=== PATIENT | male | born 2000 | race Caucasian/White ===

== ENCOUNTER 2023-04-11 17:51 | Emergency (ER) | payer BC, SELFPAY ==
[2023-04-11 17:52] VITALS: BP 113/72; PULSE 72; RESP 16; TEMP 36.5; O2SAT 100; BMI 21.1
--- NOTE | 2023-04-11 18:37 | ED.VIS.DENTA ---
HPI History of Present Illness Chief Complaint: Dental Informant: patient Narrative Narrative: Patient presents with dental pain. Patient states 1 or 2 weeks ago he had a part of a tooth broke off in the front. But he has had bad teeth there for a long time. He saw dentist a while ago. He was referred to an ethylene compressor operator to pull his teeth and it was going to be over $4000 and he just did not have the money. Patient has not had fevers or chills. This note was generated with [employer] dictation software. It may contain incorrect words, spelling, and punctuation that were not noted in review of the chart prior to signing. Also, today, our computer system has more errors in dictation problems than a normal day. PFSH PFSH Home Medications naproxen 500 mg tablet 500 mg PO BID PRN #20 tabs 04/11/23 [Rx Last Taken Unknown] penicillin V potassium 500 mg tablet 500 mg PO 4X/DAY #40 tabs 04/11/23 [Rx Last Taken Unknown] Allergy/AdvReac Type Severity Reaction Status Date / Time No Known Allergies Allergy Verified 04/11/23 17:55 Social History Smoking Status: Never smoker ROS ROS ED Constitutional Constitutional ED: Denies chills, fever(s), subjective or sweats Eyes Eyes: Denies blurry vision or change in vision ENT ENT ED: Reports other Details: See history of present illness. Cardiovascular Cardiovascular: Denies chest pain Respiratory/Chest Respiratory/Chest: Denies cough or dyspnea Gastrointestinal Gastrointestinal: Denies nausea or vomiting Musculoskeletal Musculoskeletal: Denies neck pain Integumentary Denies rash Neurologic Neurologic: Denies paresthesias or weakness Hematologic/Lymphatic Hematologic/Lymphatic: Denies lymphadenopathy EXAM Physical Exam Narrative Exam Narrative: General: Patient sitting comfortably in the bed no acute distress. HEENT: No external erythema or swelling. He has multiple eroded teeth and inflamed gums across the entire front right of his jaw. More consistent with ANUG. Normal voice. No swelling consistent with Merary's. Neck is supple no lymphadenopathy. Heart is regular. No murmur. Not tachycardic. Normal distal pulses. Lungs are clear saturations normal 100% on room air showing no hypoxia. Const Vital Signs: 10/20/23 17:52 Temperature 97.7 F L Temperature Source Temporal Pulse Rate 72 Respiratory Rate 16 Blood Pressure 113/72 Blood Pressure Mean 85 Pulse Ox 100 Oxygen Delivery Method Room Air MDM MDM MDM Narrative Medical decision making narrative: We will give the patient a dental resource sheet to give him some options. We will initiate him on antibiotics also. We discussed reasons to return. Discharge Plan Triage Chief Complaint: Dental ED Provider: Dash Quinones Dx/Rx/DC Orders Clinical Impression: ANUG (acute necrotizing ulcerative gingivitis) Instructions: Dental Abscess Prescriptions: New penicillin V potassium 500 mg tablet 500 mg PO 4X/DAY Qty: 40 0RF naproxen 500 mg tablet 500 mg PO BID PRN Qty: 20 0RF Primary Care Provider: Mavis Benz Referrals: Mavis Benz MD [Primary Care Provider] - Activity Restrictions/Additional Instructions: Follow-up with dentist as soon as able. Disposition Disposition: Home, Self Care
[2023-04-11] MEDS: Penicillin Vk 250 MG Tablet 500 MG PO (18:58)
== END 2023-04-11 19:01 | disposition home or self-care (01) ==
LOC: ED 18:55
PROVIDERS: Emergency Provider Emergency Medicine; PCP Pediatrics; Visit Provider Emergency Medicine
DX: A69.1 Other Vincent's infections (principal)
CPT/HCPCS: 99282

== ENCOUNTER 2023-05-01 14:31 | Emergency (ER) | payer BC, SELFPAY ==
[2023-05-01 14:33] VITALS: BP 115/77; PULSE 70; RESP 14; TEMP 36.2; O2SAT 100; BMI 21.4
== END 2023-05-01 15:29 | disposition left against medical advice (07) ==
LOC: ED 15:43
PROVIDERS: Emergency Provider Emergency Medicine; PCP Pediatrics; Visit Provider Emergency Medicine
DX: Z53.21 Procedure and treatment not carried out due to patient leaving prior to being seen by health care provider (principal)

== ENCOUNTER 2023-08-11 15:59 | Emergency (ER) | payer BC, SELFPAY ==
[2023-08-11 16:00] VITALS: BP 140/91; PULSE 81; RESP 14; TEMP 36.6; O2SAT 100; BMI 21.7
--- NOTE | 2023-08-11 17:36 | ED.VIS.DENTA ---
HPI History of Present Illness Chief Complaint: Ear Problem Narrative Narrative: 22-year-old male presenting with right sided ear pain and dental pain. Patient has multiple dental caries. He states he was referred to an marketing and outreach coordinator to have all of his teeth in his mouth removed. Patient states when he arrived at the marketing and outreach coordinator they did not do that. Patient states he was referred by his regular dentist. He States His Regular Dentist Stated to Him That He Only Does, cleaning, removal of teeth. Patient states that he was initially his ear to hurt for the last couple of days and then after he chipped a piece of his tooth on the right mandible he noted that the pain increased and he had some pain radiating to his neck. No trouble swallowing or breathing. No fevers or chills. PFSH PFS Medical History ADHD Asthma Home Medications penicillin V potassium 500 mg tablet 500 mg PO 4X/DAY #40 tabs 08/11/23 [Rx Last Taken Unknown] Allergy/AdvReac Type Severity Reaction Status Date / Time No Known Allergies Allergy Verified 08/11/23 16:00 Social History household members: significant other and children Smoking Status: Current every day smoker tobacco type: cigarettes ROS ROS ED Constitutional Constitutional ED: Denies chills, fever(s) or sweats Eyes Eyes: Denies blurry vision or change in vision ENT ENT ED: Reports ear pain right and other Details: Dental pain and dental caries Cardiovascular Cardiovascular: Denies chest pain, palpitations or racing heartbeat Respiratory/Chest Respiratory/Chest: Denies cough, dyspnea or sputum Gastrointestinal Gastrointestinal: Denies abdominal pain, constipation, diarrhea, nausea or vomiting Genitourinary Genitourinary ED: Denies dysuria, hematuria or urinary frequency Musculoskeletal Musculoskeletal: Denies arthralgias, myalgias or neck pain Integumentary Denies abscess, Abrasions or rash Neurologic Neurologic: Denies headache(s), paresthesias or weakness Psychiatric Psychiatric: Denies anxiety, depression, suicidal ideation or suicidal thoughts Endocrine Endocrinology: Denies polydipsia or polyuria EXAM Physical Exam Const Vital Signs: 08/11/23 16:00 Temperature 97.9 F Temperature Source Temporal Pulse Rate 81 Respiratory Rate 14 Blood Pressure 140/91 H Blood Pressure Mean 107 Pulse Ox 100 Oxygen Delivery Method Room Air Positive well nourished General Appearance ED: NAD HEENT HEENT Narrative: Widespread dental caries. Most predominant on the right mandibular teeth posteriorly. Various forms of dental decay. No sublingual edema. Tongue is normal. No submandibular edema. Right TM normal without erythema. Throat: posterior oropharynx normal Eyes PERRL Neck no lymphadenopathy and supple Resp normal respiratory effort and no retractions Cardio regular rate and regular rhythm GI normal to inspection, nondistended, normoactive bowel sounds Neuro oriented x3 and CN's II-XII intact bilaterally Sensorium / Orientation: alert Psych mental status grossly normal MDM MDM MDM Narrative Medical decision making narrative: Patient presenting with dental caries and right mandibular pain. He states he thought it was his ear but his TM looks normal. He does have various forms of dental decay throughout his mouth with predominance on the right side especially posteriorly. I recommended a dentist for him. He was given a referral sheet. I will start him on penicillin VK. No evidence of Nathanael's angina. Return precautions are discussed. Impression: 1. Dental caries 2. Dental infection Lab Data Attestation: I reviewed the patient's lab results. Discharge Plan Triage Chief Complaint: Ear Problem Other Complaint: Dental ED Provider: Nikhil Alva Dx/Rx/DC Orders Instructions: ED Dental Cavity Prescriptions: New penicillin V potassium 500 mg tablet 500 mg PO 4X/DAY Qty: 40 0RF Primary Care Provider: Mavis Benz Referrals: Mavis Benz MD [Primary Care Provider] - Disposition Disposition: Home, Self Care
[2023-08-11] MEDS: Penicillin Vk 250 MG Tablet 500 MG PO (17:37)
== END 2023-08-11 17:40 | disposition home or self-care (01) ==
PROVIDERS: Emergency Provider Student in an Organized Health Care Education/Training Program; PCP Pediatrics; Visit Provider Student in an Organized Health Care Education/Training Program
DX: K02.9 Dental caries, unspecified (principal); R68.84 Jaw pain; K04.7 Periapical abscess without sinus; F17.210 Nicotine dependence, cigarettes, uncomplicated; J45.909 Unspecified asthma, uncomplicated; H92.01 Otalgia, right ear
CPT/HCPCS: 99283

== ENCOUNTER 2024-05-07 22:20 | Emergency (ER) | payer BC, SELFPAY ==
[2024-05-07 22:21] VITALS: BP 128/85; PULSE 65; RESP 16; TEMP 36.7; O2SAT 98; BMI 22.6
--- NOTE | 2024-05-07 22:38 | EDS_ITS ---
HPI History of Present Illness Chief Complaint: Headache Informant: patient Narrative Narrative: 23-year-old male states he started having what feels like a migraine this morning and has been persistent. Retro-orbital bilateral headache, throbbing, some photophobia and nausea. No vomiting. Started having some chills tonight which is what brought him to the ER, thinking maybe he had a fever and an illness but when he got here although he was having chills his temperature is normal. He denies any other symptoms such as cough, congestion, earache, sore throat. No recent head injury. [facility] Medical History Asthma ADHD Home Medications ?Medication ?Instructions ?Recorded ?Last Taken ?Type penicillin V potassium 500 mg 500 mg PO 4X/DAY #40 tabs 08/11/23 Unknown Rx tablet Allergy/AdvReac Type Severity Reaction Status Date / Time No Known Allergies Allergy Verified 05/07/24 22:21 Social History household members: significant other and children Smoking Status: Current every day smoker tobacco type: cigarettes ROS ROS ED Constitutional Constitutional ED: Reports chills and sweats; Denies fever(s) Eyes Eyes: Denies blurry vision, change in vision or diplopia ENT ENT ED: Denies ear pain or sore throat Cardiovascular Cardiovascular: Denies chest pain or palpitations Respiratory/Chest Respiratory/Chest: Denies cough or dyspnea Gastrointestinal Gastrointestinal: Reports nausea; Denies abdominal pain, diarrhea or vomiting Genitourinary Genitourinary ED: Denies dysuria or urinary frequency Musculoskeletal Musculoskeletal: Denies back pain or myalgias Integumentary Denies abscess or rash Neurologic Neurologic: Reports headache(s); Denies paresthesias or weakness EXAM Physical Exam Const Vital Signs: 05/07/24 22:21 Temperature 98.1 F Temperature Source Oral Pulse Rate 65 Respiratory Rate 16 Blood Pressure 128/85 H Blood Pressure Mean 99 Pulse Ox 98 Oxygen Delivery Method Room Air Positive well nourished and well developed General Appearance ED: well developed and NAD HEENT Reports normocephalic, TM's clear and moist mucous membranes atraumatic Tympanic Membrane ED: Yes TM's clear Eyes PERRL, EOMs intact bilaterally and conjunctivae normal Neck no lymphadenopathy, supple and no meningeal signs Resp normal respiratory effort GI non-tender and non-distended Palpation: soft Extremity normal to inspection and full ROM Neuro oriented x3 and CN's II-XII intact bilaterally Sensorium / Orientation: awake and alert Speech: speech normal Gait (Neuro): normal gait Motor Exam: strength 5/5 throughout Psych mental status grossly normal Skin Lesions: no lesions Rashes: no rashes MDM MDM MDM Narrative Medical decision making narrative: Patient has a benign exam and normal vital signs. I think he does have a migraine. There was no thunderclap onset or loss of consciousness today and he has had no vomiting, focal neurologic symptoms, or confusion. Do not think he needs advanced imaging of the brain here, he states he has had headaches like this in the past. We had a cold front come through recently it may be related to ambient weather/pressures. He was offered multiple different forms of treatment, he basically is denying anything acidly with a needle some giving him oral medications and discharge papers and he is comfortable with that plan. Discharge Plan Triage Chief Complaint: Headache ED Provider: Antoine Ferro Dx/Rx/DC Orders Clinical Impression: Headache, migraine Instructions: ED, Migraine (Classical) Prescriptions: No Action penicillin V potassium 500 mg tablet 500 mg PO 4X/DAY Qty: 40 0RF Primary Care Provider: Mavis Benz Referrals: Mavis Benz MD [Primary Care Provider] - As Needed Print Language: [place] Disposition Disposition: Home, Self Care
[2024-05-07] MEDS: Metoclopramide 10 MG Tablet PO (22:48)
[2024-05-07] MEDS: DiphenhydrAMINE 25 MG Capsule 50 MG PO (22:48)
[2024-05-07] MEDS: Ibuprofen 600 MG Tablet PO (22:49)
== END 2024-05-07 23:06 | disposition home or self-care (01) ==
LOC: ED 23:03
PROVIDERS: Emergency Provider Emergency Medicine; Visit Provider Emergency Medicine
DX: G43.909 Migraine, unspecified, not intractable, without status migrainosus (principal); F17.210 Nicotine dependence, cigarettes, uncomplicated; J45.909 Unspecified asthma, uncomplicated
CPT/HCPCS: 99282